=== PATIENT | female | born 1940 | race Caucasian/White ===

== ENCOUNTER 2017-03-20 13:31 | Emergency (ER) | payer MEDICARE, BC ==
[2017-03-20 13:38] VITALS: BP 136/66
--- NOTE | 2017-03-20 13:58 | EDM.PDOC ---
ED HPI GENERAL MEDICAL PROBLEM - General Chief Complaint: Lower Extremity Injury/Pain Stated Complaint: TWISTED KNEE, VERY PAINFUL, [id number] Time Seen by Provider: 03/20/17 13:52 Source of Information: Reports: Patient History Limitations: Reports: No Limitations - History of Present Illness INITIAL COMMENTS - FREE TEXT/NARRATIVE: 76 yo white female c/o left knee pain. Pt. denies any trauma but admits to doing alot. PMHx. 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 Onset Date: 03/17/17 Onset Time: 12:00 Duration: Day(s): Location: Reports: Lower Extremity, Left Quality: Reports: Ache Severity: Moderate Improves with: Reports: Rest Worsens with: Reports: Movement Associated Symptoms: Reports: No Other Symptoms Left Knee Pain Score (Numeric/FACES): 8 - Related Data Allergies Allergy/AdvReac Type Severity Reaction Status Date / Time amoxicillin [From Augmentin] Allergy Rash Verified 03/20/17 13:35 clavulanic acid Allergy Rash Verified 03/20/17 13:35 [From Augmentin] Home Meds: Home Meds Cyanocobalamin (Vitamin B-12) [Vitamin B-12] 100 mcg PO 03/20/17 [History] Folic Acid 1 mg PO 03/20/17 [History] Glucosam/Chond/Hyalu/Cf Borate [Move Free Joint Health Tablet] 1 tab PO DAILY [History] Indomethacin [Indomethacin ER] 75 mg PO 03/20/17 [History] Multivitamin/Iron/Folic Acid [Centrum Women Tablet] 1 tab PO DAILY 03/20/17 [ History] Triamterene/Hydrochlorothiazid [Dyazide 37.5-25] 1 tab PO DAILY 03/20/17 [ History] Past Medical History HEENT History: Reports: Impaired Vision Musculoskeletal History: Reports: Arthritis Neurological History: 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, Peripheral Social & Family History - Family History Family Medical History: Noncontributory - Tobacco Use Smoking Status *Q: Never Smoker Second Hand Smoke Exposure: No - Caffeine Use Caffeine Use: Reports: Coffee - Recreational Drug Use Recreational Drug Use: No Review of Systems - Review of Systems Review Of Systems: See Below Constitutional: Reports: No Symptoms Eyes: Reports: No Symptoms Ears: Reports: No Symptoms Nose: Reports: No Symptoms Mouth/Throat: Reports: No Symptoms Respiratory: Reports: No Symptoms Cardiovascular: Reports: No Symptoms GI/Abdominal: Reports: No Symptoms Genitourinary: Reports: No Symptoms Musculoskeletal: Reports: Joint Pain (left knee) Skin: Reports: No Symptoms Neurological: Reports: No Symptoms Psychiatric: Reports: No Symptoms ED EXAM, GENERAL - Physical Exam Exam: See Below Exam Limited By: No Limitations General Appearance: Alert, Obese Eye Exam: Bilateral Eye: EOMI, PERRL Ears: Normal External Exam Respiratory/Chest: No Respiratory Distress Cardiovascular: Normal Peripheral Pulses Peripheral Pulses: 2+: Femoral (L), Femoral (R) GI/Abdominal: Normal Bowel Sounds Extremities: Normal Inspection, Other (left anterior knee with) Neurological: Alert, Oriented, CN II-XII Intact Psychiatric: Normal Affect Skin Exam: Warm, Dry Lymphatic: No Adenopathy Course - Vital Signs Last Recorded V/S: Last Vital Signs Temp 36.2 C 03/20/17 13:36 Pulse 110 H 03/20/17 13:36 Resp 16 03/20/17 13:36 BP 136/66 03/20/17 13:36 Pulse Ox 95 03/20/17 13:36 Departure - Departure Time of Disposition: 13:55 Disposition: Home, Self-Care 01 Condition: Good Clinical Impression: Strain of left knee Qualifiers: Encounter type: initial encounter Qualified Code(s): S86.912A - Strain of unspecified muscle(s) and tendon(s) at lower leg level, left leg, initial encounter - Discharge Information Instructions: Knee Sprain, [id number] Additional Instructions: Rest Elevate and apply Ice pack to Left Knee TID X 15 mins. For the pain and inflammation try (TUMERIC POWDER and take 1 tsp in water TID) Also, consider using ZOSTRIX cream ( pepper cream) and apply to left knee as directed Also consider taking Tylenol Extra Strength 500mg take 1 every 4-6 hours as needed. F/U w/ PCP
== END 2017-03-20 14:01 | disposition home or self-care (01) ==
LOC: DL.ED 13:31
DX: S86.912A Strain of unspecified muscle(s) and tendon(s) at lower leg level, left leg, initial encounter (principal); M17.12 Unilateral primary osteoarthritis, left knee; Z88.1 Allergy status to other antibiotic agents; Z79.899 Other long term (current) drug therapy; X50.1XXA Overexertion from prolonged static or awkward postures, initial encounter
CPT/HCPCS: 99283